=== PATIENT | male | born 1960 | race African-American/Black ===

== ENCOUNTER 2019-11-13 02:32 | Emergency (ER) | payer MEDICARE, MEDICAID ==
[~2019-11-13] VITALS: Ht 188 cm; Wt 127.0 kg
[2019-11-13] MEDS ORDERED: IBUPROFEN 600MG TABLET PO ONE (03:00)
[2019-11-13 03:45] VITALS: BP 146/93
== END 2019-11-13 03:46 | disposition home or self-care (01) ==
LOC: ER 02:32
DX: J30.9 Allergic rhinitis, unspecified (principal); T17.1XXA Foreign body in nostril, initial encounter; I25.2 Old myocardial infarction; X58.XXXA Exposure to other specified factors, initial encounter; Y93.9 Activity, unspecified; Y92.9 Unspecified place or not applicable
CPT/HCPCS: 99282

== ENCOUNTER 2020-04-13 04:11 | Emergency (ER) | payer MEDICARE, MEDICAID ==
[~2020-04-13] VITALS: Ht 188 cm; Wt 131.0 kg
[2020-04-13 04:17] VITALS: BP 153/95
[2020-04-13] MEDS ORDERED: BENZ-16 MT (05:51)
== END 2020-04-13 06:08 | disposition home or self-care (01) ==
LOC: ER 04:11
DX: Z20.822 Contact with and (suspected) exposure to COVID-19 (principal); E11.9 Type 2 diabetes mellitus without complications; I10 Essential (primary) hypertension
CPT/HCPCS: 71045; 93005; 99285; C9803; U0003